=== PATIENT | female | born 1990 | race Caucasian/White ===

== ENCOUNTER 2019-10-01 16:29 | Emergency (ER) | payer OTHER ==
[~2019-10-01] VITALS: Ht 170.2 cm; Wt 49.9 kg
[2019-10-01 16:43] VITALS: BP 103/42
--- NOTE | 2019-10-01 17:36 | NUR ---
29 Y/O F C/C LEFT UPPER CHEST, TINGLING SENSATION, 8/10 PAIN, NON RADIATING X 2 DAYS. PER PT FURTHER STATES "SOMETHING IS WRONG". PT PRESENTS ANXIOUS, A/OX4, EUPNIC, VSS, AMBULATORY. ALLERGIES BACTRIM. HX CHRONIC UTIS,KIDNEY INFECTION,TOOTH PROBLEMS,ANXIETY. NO RX. NO NVD. SIDE RAIL X1. PT PLACED ON MONITOR.
--- NOTE | 2019-10-01 17:44 | NUR ---
DR ROSA EVALUATING PT AT BEDSIDE
[2019-10-01 19:04] VITALS: BP 122/64
--- NOTE | 2019-10-01 19:05 | NUR ---
Patient discharged with v/s stable. Written and verbal after care instructions given and explained. Patient verbalized understanding. Ambulatory with steady gait. All questions addressed prior to discharge. Advised to follow up with PMD.
== END 2019-10-01 19:05 | disposition home or self-care (01) ==
LOC: MED 16:29
DX: R00.2 Palpitations (principal); K04.7 Periapical abscess without sinus; Z88.1 Allergy status to other antibiotic agents; Z88.2 Allergy status to sulfonamides
CPT/HCPCS: 71045; 93005; 99283

== ENCOUNTER 2019-11-24 21:55 | Emergency (ER) | payer OTHER ==
[~2019-11-24] VITALS: Ht 170.2 cm; Wt 48.5 kg
[2019-11-24 22:00] VITALS: BP 138/76
[2019-11-24] MEDS ORDERED: HYDROcodone/APAP 5/325 MG 1 TAB TAB PO STA (22:17)
--- NOTE | 2019-11-24 22:19 | NUR ---
To ED bed 06
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
--- NOTE | 2019-11-24 22:28 | NUR ---
pt repeatedly using profane words out loud. started yelling at the doctor " I am going to fucking prerna you, give me your fucking name."
--- NOTE | 2019-11-24 22:31 | NUR ---
PATIENT ELOPED FROM FACILITY. DISCHARGE INSTRUCTIONS NOT GIVEN TO PATIENT. DR. Pritchard NOTIFIED.
--- NOTE | 2019-11-24 22:31 | NUR ---
security contacted to escort pt out to lobby. pt stated, " don't fucking come near me, I will just walk out myself." Pt eloped.
[2019-11-24 22:39] VITALS: BP 138/76
== END 2019-11-24 22:00 | disposition left against medical advice (07) ==
LOC: MED 21:55
DX: S09.90XA Unspecified injury of head, initial encounter (principal); M25.571 Pain in right ankle and joints of right foot; M25.572 Pain in left ankle and joints of left foot; J34.89 Other specified disorders of nose and nasal sinuses; Y04.2XXA Assault by strike against or bumped into by another person, initial encounter; Y93.89 Activity, other specified; Y92.89 Other specified places as the place of occurrence of the external cause; Y99.8 Other external cause status
CPT/HCPCS: 99283

== ENCOUNTER 2021-05-23 16:55 | Emergency (ER) | payer OTHER ==
[~2021-05-23] VITALS: Ht 170.2 cm; Wt 60.3 kg
[2021-05-23 17:03] VITALS: BP 112/64
[2021-05-23] MEDS ORDERED: NACL 0.9% 1,000 ML IV ONE (17:40)
[2021-05-23] MEDS ORDERED: LORazepam 2 MG/ML VIAL IVP ONE (17:40)
[2021-05-23] MEDS ORDERED: PROCHLORPERAZINE 10 MG/2 ML VIAL IVP ONE (17:40)
--- NOTE | 2021-05-23 17:40 | NUR ---
PT AMBULATED TO ER BED 9
[2021-05-23 17:57] LABS: BASOPHILS % (AUTO) 0.6 % (0.0-2.0); EOSINOPHILS # (AUTO) 0.1 K/uL (0-0.4); EOSINOPHILS % (AUTO) 1.5 % (0.0-4.0); HEMATOCRIT 33.3 % (36-48); HEMOGLOBIN 11.6 g/dL (12.0-16.0); LYMPHOCYTES # (AUTO) 1.4 K/uL (2.5-16.5); LYMPHOCYTES % (AUTO) 22.8 % (20.5-51.1); MEAN CORPUSCULAR HEMOGLOBIN 31 pg (27-31); MEAN CORPUSCULAR HGB CONC 35 g/dL (33-37); MEAN CORPUSCULAR VOLUME 87.6 fL (80-94); MONOCYTES # (AUTO) 0.4 K/uL (0.8-1.0); MONOCYTES % (AUTO) 6.4 % (1.7-9.3); NEUTROPHILS # (AUTO) 4.3 K/uL (1.8-7.7); NEUTROPHILS % (AUTO) 68.7 % (42.2-75.2); PLATELET COUNT (AUTO) 255 K/uL (140-450); RED CELL DISTRIBUTION WIDTH 12.6 % (11.6-13.7); WHITE BLOOD COUNT (AUTO) 6.3 K/uL (4.8-10.8)
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
[2021-05-23 18:17] LABS: ALBUMIN 3.6 g/dL (3.4-5.0); ANION GAP 13.2 (8-16); CARBON DIOXIDE 24.7 mmol/L (21-32); CREATININE 0.9 mg/dL (0.6-1.3); POTASSIUM 3.9 mmol/L (3.5-5.1); TOTAL BILIRUBIN 0.4 mg/dL (0.0-1.0)
--- NOTE | 2021-05-23 18:48 | NUR ---
PT STATED THAT THEY FELT "HIGH" AFTER TAKING MEDICATION. PT ASSESSED, V/S STABLE
--- NOTE | 2021-05-23 18:52 | NUR ---
DR. RUBIN AT BEDSIDE ASSESSING PT
[2021-05-23] MEDS ORDERED: ONDANSETRON 4 MG/2 ML VIAL IVP ONE (18:55)
[2021-05-23] MEDS ORDERED: PROC-62 PO (18:58)
--- NOTE | 2021-05-23 19:28 | NUR ---
Patient discharged with v/s stable. Written and verbal after care instructions given and explained. Patient alert, oriented and verbalized understanding of instructions. Ambulatory with steady gait. All questions addressed prior to discharge. ID band removed. Patient advised to follow up with PMD. Rx of compazine given. Patient educated on indication of medication including possible reaction and side effects. Opportunity to ask questions provided and answered.
[2021-05-23 19:29] VITALS: BP 102/55
== END 2021-05-23 19:28 | disposition home or self-care (01) ==
LOC: MED 16:55
DX: R11.2 Nausea with vomiting, unspecified (principal); R00.2 Palpitations; R42 Dizziness and giddiness; Z79.899 Other long term (current) drug therapy
CPT/HCPCS: 36415; 80053; 81002; 81025; 83690; 85025; 96361; 96374; 96375; 99284; J0780; J2405; J7030; J2060